=== PATIENT | male | born 1965 | race African-American/Black ===

== ENCOUNTER 2017-11-22 05:00 | Emergency (ER) | payer OTHER ==
[~2017-11-22] VITALS: Ht 193 cm; Wt 84.4 kg
[~2017-11-22 05:00] MED LIST: DOXYCYCLINE 10100 MG PO; NOHOMEMEDICATIONS
[2017-11-22 05:02] VITALS: BP 122/77
[2017-11-22] MEDS ORDERED: KETOCONAZOLE15 GM TOP (05:24)
== END 2017-11-22 05:59 | disposition home or self-care (01) ==
LOC: ER 05:00
DX: B36.0 Pityriasis versicolor (principal)

== ENCOUNTER 2018-04-19 20:00 | Emergency (ER) | payer OTHER ==
[~2018-04-19] VITALS: Ht 193 cm; Wt 87.1 kg
--- NOTE | ~2018-04-19 | EKG ---
[address] [address] ELECTROCARDIOGRAM REPORT Name: CROCKETTCARLOS MANUEL FORDE Room #: DEP [facility]#: [id number] Admission: 04/19/18 Attend Phys: Discharge: 04/19/18 Date of : 67 Report #: [id number] THIS REPORT FOR: //name// [facility]ly [facility] ED Test Date: 2018-04-19 Test Time: 20:31:23 Pat Name: CARLOS MANUEL CROCKETT Department: Room: Gender: M [employer]: TAI WHYTE : 1965 Requested By: Jordan Berman Order Number: [id number] MD: Irving Arias Measurements Intervals [place] Rate: 62 P: 45 RI: 161 QRS: 46 QRSD: 107 T: 32 QT: 394 QTc: 400 Interpretive Statements Sinus rhythm Baseline wander in lead(s) V1,V2,V3,V5,V6 No previous ECG available for comparison Electronically Signed On 04-19-2018 21:43:43 STOCK LAYER by Irving Arias [email or web address] <ELECTRONICALLY SIGNED> By: Irving Arias MD 04/19/182142 30 30 Irving Arias MD /[email or web address]
[~2018-04-19 20:00] MED LIST changes: +KETOCONAZOLE15 GM TOP
[2018-04-19 20:33] LABS: ABSOLUTE NEUTROPHILS 2.9 thou/uL (1.4-8.2); BASOPHILS 0.9 % (0.0-2.0); EOSINOPHILS 3.2 % (0.0-3.0); HEMATOCRIT 41.8 % (42.0-52.0); HEMOGLOBIN 13.9 gm/dL (14.0-18.0); LYMPHOCYTES 31.2 % (24.0-44.0); MCH 28.7 pg (26.0-34.0); MCHC 33.4 g/dL (28.0-37.0); MCV 85.9 fL (80.0-100.0); MONOCYTES 7.2 % (1.0-8.0); PLATELET COUNT 206 thou/uL (150-400); POLYS 57.5 % (36.0-66.0); RBC 4.86 mil/uL (4.50-6.00); RDW 12.3 % (10.5-14.5); WBC 5.1 thou/uL (4.0-11.0)
[2018-04-19 20:40] LABS: ANION GAP 7 mmol/L (7-16); BUN 14 mg/dL (7-18); CALCIUM 9.3 mg/dL (8.5-10.1); CHLORIDE 106 mmol/L (98-107); CO2 28 mmol/L (21-32); CREATININE 1.1 mg/dL (0.7-1.3); GLUCOSE 118 mg/dL (74-106); POTASSIUM 3.5 mmol/L (3.5-5.1); SODIUM 141 mmol/L (136-145)
[2018-04-19 20:48] LABS: TROPONIN-I <0.06 ng/mL (<0.06)
[2018-04-19] MEDS ORDERED: MEDROLDOSEPACK PO (21:15)
[2018-04-19 21:16] VITALS: BP 126/82
== END 2018-04-19 21:40 | disposition home or self-care (01) ==
LOC: ER 20:00
PROVIDERS: Physician Assistant
DX: R20.2 Paresthesia of skin (principal)